=== PATIENT | male | born 1955 | race Two or more races ===

== ENCOUNTER 2017-01-11 05:42 | Inpatient (IN) | payer BC ==
[2017-01-11] VITALS (16 sets, daily range): BP systolic 98–131; BP diastolic 60–71
[~2017-01-11] VITALS: Ht 170.2 cm; Wt 76.2 kg
[~2017-01-11 05:42] MED LIST: NKM
[2017-01-11] MEDS ORDERED: ceFAZolin 1gm in D5W 55ml IVP ONE (06:00)
[2017-01-11] MEDS ORDERED: FARXIGA5 MG PO (06:38)
[2017-01-11] MEDS ORDERED: Surgicel 4in x 8in TOPIC ONE (07:19)
[2017-01-11] MEDS ORDERED: Bupivacaine 0.5% Inj 30 ml vial INJ ONE (07:19)
[2017-01-11] MEDS ORDERED: Propofol 10mg/ml 20ml IV ONE (07:30)
[2017-01-11] MEDS ORDERED: Zemuron 50mg/5ml Inj IV ONE (07:30)
[2017-01-11] MEDS ORDERED: Midazolam 2mg/2ml Inj ONE (07:30)
[2017-01-11] MEDS ORDERED: Morphine Sulfate 10mg/ml Inj ONE (07:30)
[2017-01-11] MEDS ORDERED: NS Irrig 1000ml ONE (07:30)
[2017-01-11] MEDS ORDERED: Sterile Water Irrig 1000ml IRRIG ONE (07:30)
[2017-01-11] MEDS ORDERED: Succinylcholine 20mg/ml 10ml vial ONE (07:30)
[2017-01-11] MEDS ORDERED: LR 1000ml ONE (07:30)
[2017-01-11] MEDS ORDERED: fentaNYL 100 mcg/2 mL IV ONE (07:30)
--- NOTE | 2017-01-11 07:45 | Pre-Procedure Note/Attestation ---
Pre-Procedure Note/Attestation Complete Prior to Procedure Planned Procedure: left Procedure Narrative: laparoscopic radical nephrectomy left Indications for Procedure Pre-Operative Diagnosis: renal mass Attestation I attest that I discussed the nature of the procedure; its benefits; risks and complications; and alternatives (and the risks and benefits of such alternatives ), prior to the procedure, with the patient (or the patient's legal medical customer service representative). I attest that, if there was a reasonable possibility of needing a blood transfusion, the patient (or the patient's legal medical customer service representative) was given the [facility] standardized written summary, pursuant to the Donald Vadim Blood Safety Act ([place] Health and Safety Code # 1645, as amended). I attest that I re-evaluated the patient just prior to the surgery and that there has been no change in the patient's H&P, except as documented below: Juanito Dubose MD Jan 11, 2017 07:45
[2017-01-11] MEDS ORDERED: NS Irrig 1000ml IRRIG ONE (08:21)
[2017-01-11] MEDS ORDERED: LR 1000ml 1,000 ML IVLG SCH (08:57)
--- NOTE | 2017-01-11 08:57 | Anethesia Preoperative Eval ---
Anesthesia Pre-op PMH/ROS General Date of Evaluation: Jan 11, 2017 Time of Evaluation: 07:10 Anesthesiologist: Travis ASA Score: ASA 3 Mallampati Score Class I : Soft palate, uvula, fauces, pillars visible Class II: Soft palate, uvula, fauces visible Class III: Soft palate, base of uvula visible Class IV: Only hard plate visible Mallampati Classification: Class II Surgeon: Sedrick Diagnosis: L kidney mass Surgical Procedure: Laparoscopic nephrectomy Anesthesia History: none Family History: no anesthesia problems Allergies: Coded Allergies: No Known Allergies (Unverified , 01/10/17) Medications: see eMAR Past Medical History Cardiovascular: Denies: CAD, HTN, [place], arrhythmia, other, valve dz Pulmonary: Denies: COPD, NATALIA, asthma, other Gastrointestinal/Genitourinary: Reports: GERD, other - Recent weight loss recurrent N&V, Denies: CRI, ESRD Neurologic/Psychiatric: Reports: depression/anxiety, Denies: CVA, TIA, dementia, other Endocrine: Reports: DM - stable on pills, Denies: hypothyroidism, other, steroids HEENT: Denies: SHOALWATER (L), SHOALWATER (R), cataract (L), cataract (R), glaucoma, other Hematology/Immune: Reports: anemia - severe a, Denies: DVT, bleeding disorder, other Musculoskeletal/Integumentary: Denies: DDD, DJD, OA, RA, edema, other Other: other - malnourished PMH Narrative: as above PSxH Narrative: None Anesthesia Pre-op Phys. Exam Physician Exam Last Vital Signs Date Time Temp Pulse Resp B/P Pulse Ox O2 Delivery O2 Flow Rate FiO2 01/11/17 06:36 97.0 90 18 108/62 96 Room Air Constitutional: NAD Neurologic: CN 2-12 intact Cardiovascular: RRR, no M/R/G Respiratory: CTA Gastrointestinal: S/NT/ND Airway Exam Mallampati Score: Class II Neck: flexible ROM: full Teeth: missing Dentures: no lower, no upper Anesthesia Pre-op A/P Labs see chart Studies Pre-op Studies: EKG Risk Assessment & Plan Assessment: ASA 3 Plan: GA with ETT PONV prevention possible intraoperative blood transfusion Status Change Before Surgery: No Pre-Antibiotics Drug: Ancef 2gr. Given Within 1 Hr of Incision: Yes Time Given: 08:12 VAKULENKO,CAROL, M.D. Jan 11, 2017 08:56
[2017-01-11] MEDS ORDERED: DiphenhydrAMINE 50mg/ml Inj IVP PRN (09:00)
[2017-01-11] MEDS ORDERED: Metoclopramide 10mg/2ml Inj IVP PRN (09:00)
[2017-01-11] MEDS ORDERED: Midazolam 2mg/2ml Inj IVP PRN (09:00)
[2017-01-11] MEDS ORDERED: Meperidine 25mg/0.5ml Inj (FOR RIGORS ONLY) IV PRN (09:00)
[2017-01-11] MEDS ORDERED: Ketorolac 30mg Inj IV PRN (09:00)
--- NOTE | 2017-01-11 09:06 | Brief Operative Note ---
Immediate Post Operative Note Operative Note Pre-op Diagnosis: renal mass Procedure: left laparoscopic radical nephrectomy Post-op Diagnosis: same Surgeon: Gato Dubose Customer Marketing Intern: Denny Underwood Anesthesia: general Specimen: yes Complications: none Condition: stable Estimated Blood Loss: minimal Drains: none Implant(s) used?: No Juanito Dubose MD Jan 11, 2017 09:06
--- NOTE | 2017-01-11 09:38 | Immediate Post-Op Evaluation ---
Immediate Post-Op Evalulation Immediate Post-Op Evalulation Procedure: L laparoscopic hand assisted nephrectomy Date of Evaluation: Jan 11, 2017 Time of Evaluation: 09:37 IV Fluids: 1200 Blood Products: Albumin 250 Estimated Blood Loss: 200 Urinary Output: 100 Blood Pressure Systolic: 105 Blood Pressure Diastolic: 65 Pulse Rate: 72 Respiratory Rate: 20 O2 Sat by Pulse Oximetry: 99 Temperature (Fahrenheit): 97.6 Pain Score (1-10): 2 Nausea: No Vomiting: No Complications none Patient Status: awake, patent, extubated, none Hydration Status: adequate CAROL CUI M.D. Jan 11, 2017 09:38
[2017-01-11] MEDS: Hydromorphone 0.5mg/0.5ml inj IVP PRN ×2 (10:03→10:24)
[2017-01-11 11:29] LABS: MEAN CORPUSCULAR HEMOGLOBIN 25.3 PG (27.0-31.0); MEAN CORPUSCULAR HGB CONC 29.7 G/DL (32.0-36.0); MEAN CORPUSCULAR VOLUME 85 FL (80-99); MEAN PLATELET VOLUME 5.5 FL (6.5-10.1); PLATELET COUNT 418 K/UL (150-450); RED BLOOD COUNT 3.12 M/UL (4.70-6.10); RED CELL DISTRIBUTION WIDTH 16.5 % (11.6-14.8); WHITE BLOOD COUNT 12.1 K/UL (4.8-10.8)
[2017-01-11 11:45] LABS: ANION GAP 19 (5-15); CARBON DIOXIDE 19 mEQ/L (20-30); CHLORIDE 99 mEQ/L (98-107); CREATININE 1.2 mg/dL (0.7-1.2); GLOMERULAR FILTRATION RATE > 60 mL/min (>60); HEMOLYSIS 0; POTASSIUM 3.6 mEQ/L (3.4-4.9); SODIUM 137 mEQ/L (135-145)
[2017-01-11 12:04] LABS: BAND NEUTROPHILS % (MANUAL) 4 % (0-8); LYMPHOCYTES % (MANUAL) 2 % (20-45); NEUTROPHILS % (MANUAL) 90 % (45-75); TOTAL CELLS COUNTED 100
[2017-01-11 12:05] LABS: BASOPHILS % (MANUAL) 0 % (0-2); EOSINOPHILS % (MANUAL) 0 % (0-3); PLATELET ESTIMATE ADEQUATE; PLATELET MORPHOLOGY NORMAL
[2017-01-11 12:06] LABS: ANISOCYTOSIS 1+; HYPOCHROMASIA 1+
[2017-01-11] MEDS ORDERED: ceFAZolin sod 2 GM in D5W 110 ML IV SCH (14:00)
[2017-01-11] MEDS: HYDROmorphone 1mg/ml Carpuject IVP PRN ×3 (14:41→23:44)
[2017-01-11] MEDS: D5 1/2NS w/KCl 20mEq 1,000 ML IV SCH ×2 (14:48→23:41)
[2017-01-11] MEDS: ceFAZolin 2gm/50 ML IV SCH ×2 (14:50→23:41)
[2017-01-11] MEDS ORDERED: NovoLOG Insulin Flexpen SUBQ SCH (16:30)
[2017-01-11] MEDS: Norco 5mg/325mg tab ORAL PRN (17:24)
[2017-01-11] MEDS: Docusate 100mg cap ORAL SCH (17:24)
[2017-01-11] MEDS: NovoLOG Insulin Flexpen SUBQ SCH ×2 (17:29→23:42)
[2017-01-12] VITALS: BP 100/62
[2017-01-12 04:00] VITALS: BP 97/57
[2017-01-12] MEDS: Norco 5mg/325mg tab ORAL PRN (05:13)
[2017-01-12] MEDS: NovoLOG Insulin Flexpen SUBQ SCH ×4 (06:11→20:19)
[2017-01-12 06:19] LABS: MEAN CORPUSCULAR HGB CONC 30.3 G/DL (32.0-36.0); MEAN CORPUSCULAR VOLUME 86 FL (80-99); MEAN PLATELET VOLUME 5.5 FL (6.5-10.1); PLATELET COUNT 464 K/UL (150-450); RED BLOOD COUNT 3.02 M/UL (4.70-6.10); RED CELL DISTRIBUTION WIDTH 16.7 % (11.6-14.8); WHITE BLOOD COUNT 5.8 K/UL (4.8-10.8)
[2017-01-12 06:41] LABS: CALCIUM 9.1 mg/dL (8.6-10.2); CREATININE 1.5 mg/dL (0.7-1.2); GLOMERULAR FILTRATION RATE 47.4 mL/min (>60)
[2017-01-12 08:00] VITALS: BP 111/69
[2017-01-12] MEDS: HYDROmorphone 1mg/ml Carpuject IVP PRN ×2 (08:08→20:05)
[2017-01-12] MEDS: Docusate 100mg cap ORAL SCH ×2 (08:08→17:12)
[2017-01-12 10:41] LABS: EOSINOPHILS % (MANUAL) 1 % (0-3); LYMPHOCYTES % (MANUAL) 28 % (20-45); NEUTROPHILS % (MANUAL) 65 % (45-75); TOTAL CELLS COUNTED 100
[2017-01-12 10:42] LABS: ANISOCYTOSIS 1+; BAND NEUTROPHILS % (MANUAL) 0 % (0-8); BASOPHILS % (MANUAL) 0 % (0-2); HYPOCHROMASIA 1+; PLATELET ESTIMATE ADEQUATE; PLATELET MORPHOLOGY NORMAL
[2017-01-12 11:31] VITALS: BP 125/77
[2017-01-12] MEDS: D5 1/2NS w/KCl 20mEq 1,000 ML IV SCH ×2 (11:37→20:12)
--- NOTE | 2017-01-12 13:06 | 48 Hour Post Anesthesia Eval ---
Post Anesthesia Evaluation Procedure: L laparoscopic hand assisted nephrectomy Date of Evaluation: Jan 12, 2017 Time of Evaluation: 12:05 Blood Pressure Systolic: 125 0: 77 Pulse Rate: 67 Respiratory Rate: 18 Temperature (Fahrenheit): 98.2 O2 Sat by Pulse Oximetry: 97 Airway: patent Nausea: No Vomiting: No Pain Intensity: 2 Hydration Status: adequate Cardiopulmonary Status: at baseline Mental Status/LOC: patient returned to baseline Post-Anesthesia Complications: 0 Follow-up care needed: N/A - further care as per primary team CHING WERNER M.D. Jan 12, 2017 13:06
--- NOTE | 2017-01-12 13:16 | Consultation ---
DATE OF CONSULTATION: 01/12/2017 INTERNAL MEDICINE CONSULTATION HISTORY OF PRESENT ILLNESS: This is a 61-year-old male, who is left radical nephrectomy. He had presented with a left renal mass was and was worked up. He has a previous history of diabetes mellitus and no other significant past history is noted. PAST MEDICAL HISTORY: Diabetes mellitus. PREVIOUS SURGICAL HISTORY: None. HOME MEDICATIONS: Farxiga 5 mg daily and Naprosyn p.r.n. ALLERGIES: None known. SOCIAL HISTORY: Noncontributory. No history of alcohol or tobacco usage. FAMILY HISTORY: Noncontributory. REVIEW OF SYSTEMS: The patient denies any headaches, hematemesis, melena, hematochezia, night sweats, or weight loss. PHYSICAL EXAMINATION: GENERAL: Reveals a 61-year-old male. HEENT: Unremarkable. CHEST: Shows clear breath sounds bilaterally. ABDOMEN: Soft. There is edema. Surgical incision is noted. Bowel sounds are not appreciated. LABORATORY DATA: Lab testing shows creatinine increasing from 1.2 to 1.5 and hemoglobin 7.9. Otherwise, workup was negative. IMPRESSION: 1. Status post left radical nephrectomy. 2. Diabetes mellitus. DISCUSSION: The patient is on dextrose plus saline. His pain medications are adequate yesterday. He is going to start today on clear liquid diet. His discontinued. Continue present medications and care. DISCHARGE PLANNING: The patient is taking POs and is ambulatory. Romain Hanley M.D. DR: RENZO JOB#: [id number] CC:
[2017-01-12 16:30] VITALS: BP 135/90
--- NOTE | 2017-01-12 16:46 | Diagnostic Imaging Report ---
Indications: Left sided abdominopelvic pain, abnormal renal function tests, one day status post nephrectomy Technique: Transabdominal real-time grayscale and duplex Doppler imaging of the kidneys, retroperitoneum, and urinary bladder was performed Findings: Comparison: None Right kidney measures 12.5 cm in length. Normal contour, echotexture, cortical thickness. 17 mm circumscribed anechoic focus emanates exophytically from lower pole cortex. No stones, other focal lesions, hydronephrosis, or obvious perinephric abnormalities. Left kidney not identified. Small irregular fluid collection in left renal bed.. The intrahepatic portion of inferior vena cava is patent and normal caliber. The urinary bladder is moderately distended with low level internal echoes. Its floor is indented by a prominent prostate gland. Circumscribed hypoechoic mass with echogenic margins appears to reside within the central portion of the mass. This appearance is more prominent on axial than sagittal imaging.. IMPRESSION: Nonvisualization of left kidney with fluid in left renal bed, compatible with given surgical history Small right renal cortical cyst; otherwise sonographically unremarkable right kidney Moderate distention of urinary bladder with low level internal echoes, may represent blood or other debris Prominent prostate indents floor of urinary bladder. Central masslike prominence is of uncertain significance and may simply represent lobulation. Rule out retained Pride catheter balloon. Attempts are being made to contact Dr. Parker, ordering physician, by telephone at time of this dictation.
[2017-01-12 20:00] VITALS: BP 130/93
[2017-01-12] MEDS: Tamsulosin 0.4mg cap ORAL SCH (20:12)
[2017-01-13] VITALS: BP 129/88
[2017-01-13 04:00] VITALS: BP 124/74
[2017-01-13] MEDS: D5 1/2NS w/KCl 20mEq 1,000 ML IV SCH ×3 (06:17→23:28)
[2017-01-13] MEDS: NovoLOG Insulin Flexpen SUBQ SCH ×4 (06:18→21:00)
[2017-01-13 07:54] LABS: CALCIUM 8.4 mg/dL (8.6-10.2); CREATININE 1.3 mg/dL (0.7-1.2); GLOMERULAR FILTRATION RATE 55.9 mL/min (>60); POTASSIUM 4.1 mEQ/L (3.4-4.9)
[2017-01-13 07:58] LABS: MEAN CORPUSCULAR HEMOGLOBIN 24.7 PG (27.0-31.0); MEAN CORPUSCULAR VOLUME 85 FL (80-99); MEAN PLATELET VOLUME 5.4 FL (6.5-10.1); PLATELET COUNT 459 K/UL (150-450); RED BLOOD COUNT 3.12 M/UL (4.70-6.10); RED CELL DISTRIBUTION WIDTH 16.4 % (11.6-14.8); WHITE BLOOD COUNT 5.1 K/UL (4.8-10.8)
[2017-01-13 08:00] VITALS: BP 131/78
[2017-01-13] MEDS: Docusate 100mg cap ORAL SCH ×2 (08:55→18:22)
--- NOTE | 2017-01-13 09:08 | Pulmonology Progress Note ---
Assessment/Plan Assessment/Plan IMPRESSION: 1. Status post left radical nephrectomy. 2. Diabetes mellitus. 3. MRSA nares 4. Post-op ileus DISCUSSION: Continue present medications and care. Pride dc Keep on clear liquid diet till pt has flatus or bowel movements Will transfuse today DC home when tolerating PO diet Subjective Interval Events: Anemic today; toleratingCLD; no flatus Constitutional: Reports: no symptoms HEENT: Repors: no symptoms Respiratory: Reports: no symptoms Cardiovascular: Reports: no symptoms Gastrointestinal/Abdominal: Reports: no symptoms Genitourinary: Reports: no symptoms Allergies: Coded Allergies: No Known Allergies (Unverified , 01/10/17) Objective Last 24 Hour Vital Signs Date Time Temp Pulse Resp B/P Pulse Ox O2 Delivery O2 Flow Rate FiO2 01/13/17 08:00 96.8 73 18 131/78 96 Room Air 01/13/17 04:00 98.4 73 19 124/74 99 Room Air 01/13/17 00:00 97.9 75 18 129/88 97 Room Air 01/12/17 20:00 98.2 79 18 130/93 95 Room Air 01/12/17 16:30 98.8 71 18 135/90 97 Room Air 01/12/17 13:06 67 18 97 01/12/17 11:31 98.2 67 18 125/77 99 Room Air Intake and Output 01/12/17 01/13/17 19:00 07:00 Intake Total 7170 ml 240 ml Output Total 350 ml 1300 ml Balance 6820 ml -1060 ml Intake Oral 720 ml 240 ml IV Total 6450 ml Output Urine Total 350 ml 1300 ml # Voids 3 General Appearance: no acute distress HEENT: normocephalic Respiratory/Chest: chest wall non-tender, lungs clear Cardiovascular: normal peripheral pulses, normal rate Abdomen: hypoactive bowel sounds Extremities: no cyanosis Microbiology Date/Time Source Procedure Growth Status 01/11/17 06:35 Nasal Nares MRSA Culture - Final Staphylococcus Aureus - Mrsa Complete Laboratory Tests 01/13/17 06:30: White Blood Count 5.1, Red Blood Count 3.12L, Hemoglobin 7.7L, Hematocrit 26.6L , Mean Corpuscular Volume 85, Mean Corpuscular Hemoglobin 24.7L, Mean Corpuscular Hemoglobin Concent 29.0L, Red Cell Distribution Width 16.4H, Platelet Count 459H, Mean Platelet Volume 5.4L, Neutrophils (%) (Auto) , Lymphocytes (%) (Auto) , Monocytes (%) (Auto) , Eosinophils (%) (Auto) , Basophils (%) (Auto) , Neutrophils % (Manual) [Pending], Lymphocytes % (Manual) [Pending], Platelet Estimate [Pending], Platelet Morphology [Pending], Sodium Level 137, Potassium Level 4.1, Chloride Level 103, Carbon Dioxide Level 23, Anion Gap 11, Blood Urea Nitrogen 13, Creatinine 1.3H, Estimat Glomerular Filtration Rate 55.9, Glucose Level 127H, Calcium Level 8.4L Current Medications Medications (Trade) Dose Ordered Sig/Grayson Route PRN Reason Start Time Stop Time Status Last Admin Dose Admin Acetaminophen (Tylenol) 650 mg Q6H PRN ORAL Mild Pain (Pain Scale 1-3) 01/11/17 14:00 02/10/17 13:59 Acetaminophen/ Hydrocodone Bitart ([place] 5/325) 1 tab Q4H PRN ORAL Moderate Pain (Pain Scale 4-6) 01/11/17 14:00 01/18/17 13:59 01/12/17 05:13 Dextrose (Dextrose 50%) STAT PRN IV Hypoglycemia 01/11/17 15:30 02/10/17 15:29 Dextrose/ Electrolytes (D5 0.45%NS W/ KCl 20mEq) 1,000 ml @ 100 mls/hr Q10H IV 01/11/17 14:00 02/10/17 13:59 01/13/17 06:17 Docusate Sodium (Colace) 100 mg TWICE A DAY ORAL 01/11/17 18:00 02/10/17 17:59 01/13/17 08:55 Hydromorphone HCl (Dilaudid) 1 mg Q3H PRN IVP Severe Pain (Pain Scale 7-10) 01/12/17 01:30 01/19/17 01:29 01/12/17 20:05 Insulin Aspart (NovoLOG) AC+HS SUBQ 01/12/17 11:30 02/11/17 11:29 01/13/17 06:18 Mupirocin (Bactroban Oint) 1 applic BID TOPIC 01/12/17 21:00 01/17/17 20:59 01/13/17 08:55 Ondansetron HCl (Zofran) 4 mg Q6H PRN IVP Nausea & Vomiting 01/11/17 14:00 02/10/17 13:59 Sodium Chloride (NS) 500 ml @ 999 mls/hr BIDPRN PRN IV PRN NO URINE OUTPUT 01/12/17 15:00 01/13/17 23:59 01/12/17 16:27 Tamsulosin HCl 0.4 mg 0.4 mg BEDTIME ORAL 01/12/17 21:00 02/11/17 20:59 01/12/17 20:12 Temazepam (Restoril) 7.5 mg HSPRN PRN ORAL Insomnia 01/11/17 20:00 01/18/17 19:59 Romain Hanley MD Jan 13, 2017 09:08
[2017-01-13 10:01] LABS: EOSINOPHILS % (MANUAL) 2 % (0-3); LYMPHOCYTES % (MANUAL) 28 % (20-45); NEUTROPHILS % (MANUAL) 64 % (45-75); TOTAL CELLS COUNTED 100
[2017-01-13 10:02] LABS: ANISOCYTOSIS 1+; BAND NEUTROPHILS % (MANUAL) 0 % (0-8); BASOPHILS % (MANUAL) 0 % (0-2); HYPOCHROMASIA 3+; PLATELET ESTIMATE ADEQUATE; PLATELET MORPHOLOGY NORMAL
[2017-01-13 12:00] VITALS: BP 132/90
[2017-01-13 16:00] VITALS: BP 130/81
[2017-01-13 20:00] VITALS: BP 132/78
[2017-01-13] MEDS: Tamsulosin 0.4mg cap ORAL SCH (21:44)
[2017-01-13] MEDS: HYDROmorphone 1mg/ml Carpuject IVP PRN (23:28)
[2017-01-14] VITALS: BP 142/85
[2017-01-14 04:13] VITALS: BP 137/83
--- NOTE | 2017-01-14 04:45 | Operative Note - Dictated ---
DATE OF OPERATION: 01/11/2017 PREOPERATIVE DIAGNOSIS: Left renal mass. POSTOPERATIVE DIAGNOSIS: Left renal mass. OPERATION: Laparoscopic radical left nephrectomy. SURGEON: Juanito Dubose M.D. PICKING TABLE WORKER: Denny Underwood M.D. FINDINGS: A 10 cm large renal mass. INDICATIONS FOR SURGERY: The patient presented to me for second opinion for a large left renal mass. CT urogram confirmed the presence of a large mobile renal mass without distant metastasis . Treatment options were explained to the patient in great length including all potential complications and she signed a consent. She was brought to the operating room, placed in the left lateral decubital position, and prepped and draped in a standard fashion under general anesthesia. A 7.5 cm incision was made in the midline below the xiphoid and three additional trocars, two 12 and one 5 was placed. In the standard position, dissection was started with mobilization of the descending colon medially exposing spleen and left renal fossa. Spleen was retracted cephalad and kidney was exposed. Ureter was clipped and severed with Endo-ESTEFANY. Further dissection with blunt and sharp dissection revealed all the margins of the kidney. Renal pedicle was dissected free and transected with Endo-ESTEFANY, adrenal as well and removed for pathologic examination. There was no active bleeding. Estimated blood loss was approximately 150 mL. There was no evidence of residual tumor. The patient tolerated the procedure well. The wound was closed in three layers. Juanito Dubose M.D. DR: Luisito JOB#: [id number] CC:
[2017-01-14] MEDS: NovoLOG Insulin Flexpen SUBQ SCH ×4 (06:17→21:25)
[2017-01-14 07:35] LABS: BASOPHILS % (AUTO) 0.4 % (0.0-2.0); EOSINOPHILS % (AUTO) 1.9 % (0.0-3.0); LYMPHOCYTES % (AUTO) 11.9 % (20.0-45.0); MEAN CORPUSCULAR HEMOGLOBIN 27.3 PG (27.0-31.0); MEAN CORPUSCULAR HGB CONC 31.3 G/DL (32.0-36.0); MEAN CORPUSCULAR VOLUME 87 FL (80-99); MEAN PLATELET VOLUME 5.3 FL (6.5-10.1); MONOCYTES % (AUTO) 5.8 % (1.0-10.0); PLATELET COUNT 505 K/UL (150-450); RED BLOOD COUNT 3.84 M/UL (4.70-6.10); RED CELL DISTRIBUTION WIDTH 16.4 % (11.6-14.8); WHITE BLOOD COUNT 5.8 K/UL (4.8-10.8)
[2017-01-14 07:54] LABS: ANION GAP 11 (5-15); CALCIUM 8.6 mg/dL (8.6-10.2); CARBON DIOXIDE 24 mEQ/L (20-30); CHLORIDE 104 mEQ/L (98-107); CREATININE 1.2 mg/dL (0.7-1.2); GLOMERULAR FILTRATION RATE > 60 mL/min (>60); HEMOLYSIS 0; SODIUM 139 mEQ/L (135-145)
[2017-01-14 08:12] VITALS: BP 134/91
[2017-01-14] MEDS: Docusate 100mg cap ORAL SCH ×2 (09:12→17:42)
[2017-01-14] MEDS: Norco 5mg/325mg tab ORAL PRN ×2 (09:12→17:43)
[2017-01-14] MEDS: D5 1/2NS w/KCl 20mEq 1,000 ML IV SCH ×2 (09:15→22:00)
[2017-01-14] MEDS ORDERED: NS 550ML IV ONE (09:41)
[2017-01-14] MEDS ORDERED: Tubing Blood Filter IV ONE (09:41)
[2017-01-14] MEDS ORDERED: Tubing IV Secondary IV ONE (09:41)
[2017-01-14 12:20] VITALS: BP 108/77
[2017-01-14 16:00] VITALS: BP 125/75
--- NOTE | 2017-01-14 16:16 | Internal Med Progress Note ---
Subjective Date of Service: Jan 14, 2017 Physician Name Winston Avery Attending Physician Juanito Dubose MD Current Medications Medications (Trade) Dose Ordered Sig/Grayson Route PRN Reason Start Time Stop Time Status Last Admin Dose Admin Acetaminophen (Tylenol) 650 mg Q6H PRN ORAL Mild Pain (Pain Scale 1-3) 01/11/17 14:00 02/10/17 13:59 Acetaminophen/ Hydrocodone Bitart ([place] 5/325) 1 tab Q4H PRN ORAL Moderate Pain (Pain Scale 4-6) 01/11/17 14:00 01/18/17 13:59 01/14/17 09:12 Dextrose (Dextrose 50%) STAT PRN IV Hypoglycemia 01/11/17 15:30 02/10/17 15:29 Dextrose/ Electrolytes (D5 0.45%NS W/ KCl 20mEq) 1,000 ml @ 100 mls/hr Q10H IV 01/11/17 14:00 02/10/17 13:59 01/14/17 09:15 Docusate Sodium (Colace) 100 mg TWICE A DAY ORAL 01/11/17 18:00 02/10/17 17:59 01/14/17 09:12 Hydromorphone HCl (Dilaudid) 1 mg Q3H PRN IVP Severe Pain (Pain Scale 7-10) 01/12/17 01:30 01/19/17 01:29 01/13/17 23:28 Insulin Aspart (NovoLOG) AC+HS SUBQ 01/12/17 11:30 02/11/17 11:29 01/14/17 12:26 Mupirocin (Bactroban Oint) 1 applic BID TOPIC 01/12/17 21:00 01/17/17 20:59 01/14/17 09:13 Ondansetron HCl (Zofran) 4 mg Q6H PRN IVP Nausea & Vomiting 01/11/17 14:00 02/10/17 13:59 01/14/17 10:44 Tamsulosin HCl (Flomax) 0.4 mg BEDTIME ORAL 01/12/17 21:00 02/11/17 20:59 01/13/17 21:44 Temazepam (Restoril) 7.5 mg HSPRN PRN ORAL Insomnia 01/11/17 20:00 01/18/17 19:59 Allergies: Coded Allergies: No Known Allergies (Unverified , 01/10/17) ROS Limited/Unobtainable: No Constitutional: Reports: no symptoms HEENT: Reports: no symptoms Cardiovascular: Reports: no symptoms Respiratory: Reports: no symptoms Gastrointestinal/Abdominal: Reports: no symptoms Genitourinary: Reports: no symptoms Neurologic/Psychiatric: Reports: no symptoms Subjective 61 YO M admitted with left renal mass; S/P laparoscopic left nephrectomy . Cover for Int Martin-Dr Hanley Objective Last Vital Signs Date Time Temp Pulse Resp B/P Pulse Ox O2 Delivery O2 Flow Rate FiO2 01/14/17 12:20 97.2 76 18 108/77 96 Room Air 01/12/17 04:00 Laboratory Tests Test 01/14/17 05:10 White Blood Count 5.8 K/UL (4.8-10.8) Red Blood Count 3.84 M/UL (4.70-6.10) L Hemoglobin 10.5 G/DL (14.2-18.0) #L Hematocrit 33.5 % (42.0-52.0) L Mean Corpuscular Volume 87 FL (80-99) Mean Corpuscular Hemoglobin 27.3 PG (27.0-31.0) Mean Corpuscular Hemoglobin Concent 31.3 G/DL (32.0-36.0) L Red Cell Distribution Width 16.4 % (11.6-14.8) H Platelet Count 505 K/UL (150-450) H Mean Platelet Volume 5.3 FL (6.5-10.1) L Neutrophils (%) (Auto) 80.0 % (45.0-75.0) H Lymphocytes (%) (Auto) 11.9 % (20.0-45.0) L Monocytes (%) (Auto) 5.8 % (1.0-10.0) Eosinophils (%) (Auto) 1.9 % (0.0-3.0) Basophils (%) (Auto) 0.4 % (0.0-2.0) Sodium Level 139 mEQ/L (135-145) Potassium Level 4.0 mEQ/L (3.4-4.9) Chloride Level 104 mEQ/L (98-107) Carbon Dioxide Level 24 mEQ/L (20-30) Anion Gap 11 (5-15) Blood Urea Nitrogen 10 mg/dL (7-23) Creatinine 1.2 mg/dL (0.7-1.2) Estimat Glomerular Filtration Rate > 60 mL/min (>60) Glucose Level 147 mg/dL (74-106) H Calcium Level 8.6 mg/dL (8.6-10.2) Intake and Output 01/13/17 01/14/17 19:00 07:00 Intake Total 100 ml 800 ml Output Total 950 ml Balance -850 ml 800 ml IV Total 100 ml 800 ml Output Urine Total 950 ml # Voids 3 Objective General: alert, cooperative, no distress, appears stated age Head: normocephalic, without obvious abnormality, atraumatic Eyes: conjunctivae/corneas clear. PERRL, EOM's intact Throat: lips, mucosa, and tongue normal. MMM Neck: supple, symmetrical, trachea midline, and no JVD Lungs: clear to auscultation bilaterally Heart: regular rate and rhythm, S1, S2 normal, no murmur, click, rub or gallop Abdomen: soft, non-tender, non-distended, bowel sounds normal; no masses or organomegaly Extremities: extremities normal, atraumatic, no cyanosis or edema Pulses: 2+ and symmetric Skin: skin color, texture, turgor normal; no rashes or lesions Neurologic: grossly normal, no focal deficits Assessment/Plan Problem List: (1) Left renal mass Assessment & Plan: See surgery note. S/P left laparoscopic nephrectomy on 01/11 (2) Postoperative state (3) Diabetes mellitus, type II Assessment & Plan: Continue novolog sliding scale. Status: progressing WINSTON AVERY Jan 14, 2017 16:16
[2017-01-14 20:00] VITALS: BP 137/88
[2017-01-14] MEDS: Tamsulosin 0.4mg cap ORAL SCH (21:20)
[2017-01-15] VITALS: BP 124/84
[2017-01-15] MEDS: HYDROmorphone 1mg/ml Carpuject IVP PRN ×2 (00:49→11:57)
[2017-01-15] MEDS: D5 1/2NS w/KCl 20mEq 1,000 ML IV SCH (00:56)
[2017-01-15 04:00] VITALS: BP 129/83
[2017-01-15] MEDS: NovoLOG Insulin Flexpen SUBQ SCH ×4 (06:11→20:25)
[2017-01-15 07:04] LABS: BASOPHILS % (AUTO) 0.7 % (0.0-2.0); EOSINOPHILS % (AUTO) 3.1 % (0.0-3.0); LYMPHOCYTES % (AUTO) 14.2 % (20.0-45.0); MEAN CORPUSCULAR HEMOGLOBIN 26.9 PG (27.0-31.0); MEAN CORPUSCULAR HGB CONC 30.6 G/DL (32.0-36.0); MEAN CORPUSCULAR VOLUME 88 FL (80-99); MEAN PLATELET VOLUME 5.1 FL (6.5-10.1); MONOCYTES % (AUTO) 6.5 % (1.0-10.0); NEUTROPHILS % (AUTO) 75.6 % (45.0-75.0); PLATELET COUNT 432 K/UL (150-450); RED CELL DISTRIBUTION WIDTH 16.6 % (11.6-14.8)
[2017-01-15 07:41] LABS: CALCIUM 8.4 mg/dL (8.6-10.2); CREATININE 1.3 mg/dL (0.7-1.2); GLOMERULAR FILTRATION RATE 55.9 mL/min (>60); POTASSIUM 4.3 mEQ/L (3.4-4.9)
[2017-01-15 08:00] VITALS: BP 134/78
[2017-01-15] MEDS: Docusate 100mg cap ORAL SCH ×2 (09:55→17:33)
[2017-01-15 12:00] VITALS: BP 130/90
[2017-01-15 16:00] VITALS: BP 143/93
--- NOTE | 2017-01-15 18:11 | Internal Med Progress Note ---
Subjective Date of Service: Jan 15, 2017 Physician Name AveryWinston macias Attending Physician Juanito Dubose MD Current Medications Medications (Trade) Dose Ordered Sig/Grayson Route PRN Reason Start Time Stop Time Status Last Admin Dose Admin Acetaminophen (Tylenol) 650 mg Q6H PRN ORAL Mild Pain (Pain Scale 1-3) 01/11/17 14:00 02/10/17 13:59 Acetaminophen/ Hydrocodone Bitart ([place] 5/325) 1 tab Q4H PRN ORAL Moderate Pain (Pain Scale 4-6) 01/11/17 14:00 01/18/17 13:59 01/14/17 17:43 Al Hydroxide/Mg Hydroxide (Mylanta) 30 ml Q4H PRN ORAL N/V UNRELIEVED BY KRYS 01/14/17 18:15 02/13/17 18:14 Dextrose (Dextrose 50%) STAT PRN IV Hypoglycemia 01/11/17 15:30 02/10/17 15:29 Docusate Sodium (Colace) 100 mg TWICE A DAY ORAL 01/11/17 18:00 02/10/17 17:59 01/15/17 17:33 Hydromorphone HCl (Dilaudid) 1 mg Q3H PRN IVP Severe Pain (Pain Scale 7-10) 01/12/17 01:30 01/19/17 01:29 01/15/17 11:57 Insulin Aspart (NovoLOG) AC+HS SUBQ 01/12/17 11:30 02/11/17 11:29 01/15/17 06:11 Mupirocin (Bactroban Oint) 1 applic BID TOPIC 01/12/17 21:00 01/17/17 20:59 01/15/17 17:33 Ondansetron HCl (Zofran) 4 mg Q6H PRN IVP Nausea & Vomiting 01/11/17 14:00 02/10/17 13:59 01/15/17 12:34 Pantoprazole (Protonix) 40 mg DAILY ORAL 01/15/17 09:00 02/14/17 08:59 01/15/17 09:56 Tamsulosin HCl (Flomax) 0.4 mg BEDTIME ORAL 01/12/17 21:00 02/11/17 20:59 01/14/17 21:20 Temazepam (Restoril) 7.5 mg HSPRN PRN ORAL Insomnia 01/11/17 20:00 01/18/17 19:59 01/14/17 21:20 Allergies: Coded Allergies: No Known Allergies (Unverified , 01/10/17) ROS Limited/Unobtainable: No Constitutional: Reports: no symptoms HEENT: Reports: no symptoms Cardiovascular: Reports: no symptoms Respiratory: Reports: no symptoms Gastrointestinal/Abdominal: Reports: abdominal pain Genitourinary: Reports: no symptoms Neurologic/Psychiatric: Reports: no symptoms Subjective 61 YO M admitted with left renal mass; S/P laparoscopic left nephrectomy . Cover for Int Martin-Dr Hanley Objective Last Vital Signs Date Time Temp Pulse Resp B/P Pulse Ox O2 Delivery O2 Flow Rate FiO2 01/15/17 16:00 96.2 77 20 143/93 95 Room Air 01/12/17 04:00 Laboratory Tests Test 01/15/17 05:20 White Blood Count 7.0 K/UL (4.8-10.8) Red Blood Count 3.70 M/UL (4.70-6.10) L Hemoglobin 10.0 G/DL (14.2-18.0) L Hematocrit 32.6 % (42.0-52.0) L Mean Corpuscular Volume 88 FL (80-99) Mean Corpuscular Hemoglobin 26.9 PG (27.0-31.0) L Mean Corpuscular Hemoglobin Concent 30.6 G/DL (32.0-36.0) L Red Cell Distribution Width 16.6 % (11.6-14.8) H Platelet Count 432 K/UL (150-450) Mean Platelet Volume 5.1 FL (6.5-10.1) L Neutrophils (%) (Auto) 75.6 % (45.0-75.0) H Lymphocytes (%) (Auto) 14.2 % (20.0-45.0) L Monocytes (%) (Auto) 6.5 % (1.0-10.0) Eosinophils (%) (Auto) 3.1 % (0.0-3.0) H Basophils (%) (Auto) 0.7 % (0.0-2.0) Sodium Level 138 mEQ/L (135-145) Potassium Level 4.3 mEQ/L (3.4-4.9) Chloride Level 103 mEQ/L (98-107) Carbon Dioxide Level 23 mEQ/L (20-30) Anion Gap 12 (5-15) Blood Urea Nitrogen 12 mg/dL (7-23) Creatinine 1.3 mg/dL (0.7-1.2) H Estimat Glomerular Filtration Rate 55.9 mL/min (>60) Glucose Level 137 mg/dL (74-106) H Calcium Level 8.4 mg/dL (8.6-10.2) L Intake and Output 01/14/17 01/15/17 19:00 07:00 Intake Total 920 ml 340 ml Output Total 350 ml 275 ml Balance 570 ml 65 ml Intake Oral 320 ml 240 ml IV Total 600 ml 100 ml Output Urine Total 350 ml 275 ml # Voids 3 1 # Bowel Movements 1 Objective General: alert, cooperative, no distress, appears stated age Head: normocephalic, without obvious abnormality, atraumatic Eyes: conjunctivae/corneas clear. PERRL, EOM's intact Throat: lips, mucosa, and tongue normal. MMM Neck: supple, symmetrical, trachea midline, and no JVD Lungs: clear to auscultation bilaterally Heart: regular rate and rhythm, S1, S2 normal, no murmur, click, rub or gallop Abdomen: soft, non-tender, non-distended, bowel sounds normal; no masses or organomegaly Extremities: extremities normal, atraumatic, no cyanosis or edema Pulses: 2+ and symmetric Skin: skin color, texture, turgor normal; no rashes or lesions Neurologic: grossly normal, no focal deficits Assessment/Plan Problem List: (1) Left renal mass Assessment & Plan: See surgery note. S/P left laparoscopic nephrectomy on 01/11 (2) Postoperative state (3) Diabetes mellitus, type II Assessment & Plan: Continue novolog sliding scale. Status: progressing Assessment/Plan Advance diet per surgery. WINSTON AVERY Jan 15, 2017 18:11
[2017-01-15 20:00] VITALS: BP 128/80
[2017-01-15] MEDS: Norco 5mg/325mg tab ORAL PRN (20:51)
[2017-01-15] MEDS: Tamsulosin 0.4mg cap ORAL SCH (20:51)
[2017-01-16] VITALS: BP 123/73
[2017-01-16 04:00] VITALS: BP 129/86
[2017-01-16] MEDS: Norco 5mg/325mg tab ORAL PRN (05:32)
[2017-01-16] MEDS: NovoLOG Insulin Flexpen SUBQ SCH ×2 (06:27→11:30)
[2017-01-16 06:52] LABS: BASOPHILS % (AUTO) 0.9 % (0.0-2.0); EOSINOPHILS % (AUTO) 2.6 % (0.0-3.0); LYMPHOCYTES % (AUTO) 23.3 % (20.0-45.0); MEAN CORPUSCULAR HEMOGLOBIN 27.7 PG (27.0-31.0); MEAN CORPUSCULAR HGB CONC 31.8 G/DL (32.0-36.0); MEAN CORPUSCULAR VOLUME 87 FL (80-99); MEAN PLATELET VOLUME 5.3 FL (6.5-10.1); MONOCYTES % (AUTO) 11.1 % (1.0-10.0); NEUTROPHILS % (AUTO) 62.2 % (45.0-75.0); PLATELET COUNT 431 K/UL (150-450); RED BLOOD COUNT 3.53 M/UL (4.70-6.10); RED CELL DISTRIBUTION WIDTH 17.6 % (11.6-14.8); WHITE BLOOD COUNT 5.1 K/UL (4.8-10.8)
[2017-01-16 07:34] LABS: CALCIUM 8.5 mg/dL (8.6-10.2); CREATININE 1.3 mg/dL (0.7-1.2); GLOMERULAR FILTRATION RATE 55.9 mL/min (>60); POTASSIUM 4.1 mEQ/L (3.4-4.9)
[2017-01-16 08:00] VITALS: BP 128/78
[2017-01-16] MEDS: Docusate 100mg cap ORAL SCH (09:13)
--- NOTE | 2017-01-16 10:19 | Pulmonology Progress Note ---
Assessment/Plan Assessment/Plan IMPRESSION: 1. Status post left radical nephrectomy. 2. Diabetes mellitus. 3. MRSA nares 4. Post-op ileus DISCUSSION: Continue present medications and care. Shannen wilcox DC home Subjective Interval Events: doing well Constitutional: Reports: no symptoms HEENT: Repors: no symptoms Respiratory: Reports: no symptoms Cardiovascular: Reports: no symptoms Gastrointestinal/Abdominal: Reports: no symptoms Allergies: Coded Allergies: No Known Allergies (Unverified , 01/10/17) Objective Last 24 Hour Vital Signs Date Time Temp Pulse Resp B/P Pulse Ox O2 Delivery O2 Flow Rate FiO2 01/16/17 08:00 97.0 65 17 128/78 95 Room Air 01/16/17 04:00 97.4 71 18 129/86 97 Room Air 01/16/17 00:00 98.5 74 18 123/73 95 Room Air 01/15/17 20:00 97.5 79 18 128/80 96 Room Air 01/15/17 16:00 96.2 77 20 143/93 95 Room Air 01/15/17 12:00 97.0 80 18 130/90 97 Room Air Intake and Output 01/15/17 01/16/17 19:00 07:00 Intake Total 1410 ml 240 ml Output Total 550 ml 325 ml Balance 860 ml -85 ml Intake Oral 910 ml 240 ml IV Total 500 ml Output Urine Total 550 ml 325 ml # Voids 4 2 General Appearance: no acute distress HEENT: normocephalic Respiratory/Chest: chest wall non-tender, lungs clear Cardiovascular: normal peripheral pulses, normal rate Abdomen: normal bowel sounds Laboratory Tests 01/16/17 04:30: White Blood Count 5.1, Red Blood Count 3.53L, Hemoglobin 9.8L, Hematocrit 30.8L , Mean Corpuscular Volume 87, Mean Corpuscular Hemoglobin 27.7, Mean Corpuscular Hemoglobin Concent 31.8L, Red Cell Distribution Width 17.6H, Platelet Count 431, Mean Platelet Volume 5.3L, Neutrophils (%) (Auto) 62.2, Lymphocytes (%) (Auto) 23.3, Monocytes (%) (Auto) 11.1H, Eosinophils (%) (Auto) 2.6, Basophils (%) (Auto) 0.9, Sodium Level 140, Potassium Level 4.1, Chloride Level 103, Carbon Dioxide Level 26, Anion Gap 11, Blood Urea Nitrogen 13, Creatinine 1.3H, Estimat Glomerular Filtration Rate 55.9, Glucose Level 106, Calcium Level 8.5L Current Medications Medications (Trade) Dose Ordered Sig/[place] Route PRN Reason Start Time Stop Time Status Last Admin Dose Admin Acetaminophen (Tylenol) 650 mg Q6H PRN ORAL Mild Pain (Pain Scale 1-3) 01/11/17 14:00 02/10/17 13:59 Acetaminophen/ Hydrocodone Bitart (Martin 5/325) 1 tab Q4H PRN ORAL Moderate Pain (Pain Scale 4-6) 01/11/17 14:00 01/18/17 13:59 01/16/17 05:32 Al Hydroxide/Mg Hydroxide (Mylanta) 30 ml Q4H PRN ORAL N/V UNRELIEVED BY KRYS 01/14/17 18:15 02/13/17 18:14 01/16/17 05:05 Dextrose (Dextrose 50%) STAT PRN IV Hypoglycemia 01/11/17 15:30 02/10/17 15:29 Docusate Sodium (Colace) 100 mg TWICE A DAY ORAL 01/11/17 18:00 02/10/17 17:59 01/16/17 09:13 Hydromorphone HCl (Dilaudid) 1 mg Q3H PRN IVP Severe Pain (Pain Scale 7-10) 01/12/17 01:30 01/19/17 01:29 01/15/17 11:57 Insulin Aspart (NovoLOG) AC+HS SUBQ 01/12/17 11:30 02/11/17 11:29 01/15/17 20:25 Mupirocin (Bactroban Oint) 1 applic BID TOPIC 01/12/17 21:00 01/17/17 20:59 01/16/17 09:13 Ondansetron HCl (Zofran) 4 mg Q6H PRN IVP Nausea & Vomiting 01/11/17 14:00 02/10/17 13:59 01/15/17 12:34 Pantoprazole (Protonix) 40 mg DAILY ORAL 01/15/17 09:00 02/14/17 08:59 01/16/17 09:13 Tamsulosin HCl (Flomax) 0.4 mg BEDTIME ORAL 01/12/17 21:00 02/11/17 20:59 01/15/17 20:51 Temazepam (Restoril) 7.5 mg HSPRN PRN ORAL Insomnia 01/11/17 20:00 01/18/17 19:59 01/14/17 21:20 Romain Hanley MD Jan 16, 2017 10:19
[2017-01-16] MEDS ORDERED: NORCO 5-325 TA1 EACH ORAL (10:22)
[2017-01-16] MEDS ORDERED: BACTROBAN 2% OI15 GM TOPIC (10:22)
[2017-01-16] MEDS ORDERED: FLOMAX0.4 MG ORAL (10:22)
--- NOTE | 2017-01-17 09:01 | Discharge Summary ---
Discharge Summary Hospital Course Date of Admission Jan 11, 2017 at 05:42 Date of Discharge Jan 16, 2017 at 12:37 Admitting Diagnosis left renal mass Reason for Hospitalization: elective surgery MIRACLE Torres is a 61 year old male who was admitted on January 11, 2017 at 05 :42 for large left renal mass CT urogram confirmed presence of large mobile left renal mass without distant metastasis treatment options were explained to the patient patient choose to have elective surgery patient was admitted for elective surgery Consultations dr Hanley- Procedures s/p 01/11 - Laparoscopic radical left nephrectomy by dr Dubose Hospital Course s/p surgery initially IVF clear liquids developed postoperative ileus kept on CL diet until flatus diet slowly advanced a/emetic prn able to tolerate diet anemic with lowest HH 7.7/26.6 s/p 2 u PRBC transfusion HH after transfusion HH respectively - 10.5/33.5 BS management with SS of insulin, stable pain controlled tolerated diet ambulated voided freely creat down to 1.3 stable for dc fup with surgeon as outpatient awaiting for pathology results of mass DISCHARGE DIAGNOSIS large left renal mass s/p 01/11 - Laparoscopic radical left nephrectomy postoperative ileus anemia s/p blood transfusion DM Discharge Medications New Medications: Hydrocodone Bit/Acetaminophen 5-325* ([place] 5-325*) 1 Each Tablet 1 TAB ORAL Q4H PRN for 5 Days, TAB Mupirocin (Mupirocin) 22 Gm Oint...g. 1 APPLIC TOPIC BID for 10 Days, GM Tamsulosin HCl (Flomax) 0.4 Mg Cap.er.24h 0.4 MG ORAL BEDTIME for 30 Days, CAP Continued Medications: Dapagliflozin Propanediol (Farxiga) 5 Mg Tablet 5 MG PO DAILY, TAB Discharge Condition Upon Discharge: stable Discharge Disposition Patient was discharged to Home with Home Health(06) Discharge Diagnoses: Discharge Instructions Discharge Instructions Special Instructions I have been assigned to complete a D/C Summary on this account. I was not involved in the patient management Sherron Ruffin NP ([place]) Jan 17, 2017 09:01
== END 2017-01-16 12:37 | disposition home health service (06) | DRG 660 ==
LOC: SDSOVERFLO 05:42 → EDSTATUS 07:30 → 3E 11:49
PROC: 0GT24ZZ Resection of Left Adrenal Gland, Percutaneous Endoscopic Approach (ICD-10-PCS; principal; 2017-01-11 07:30)
PROC: 30233N1 Transfusion of Nonautologous Red Blood Cells into Peripheral Vein, Percutaneous Approach (ICD-10-PCS; principal; 2017-01-11 07:30)
PROC: 0TT14ZZ Resection of Left Kidney, Percutaneous Endoscopic Approach (ICD-10-PCS; principal; 2017-01-11 07:30)
DX: N28.89 Other specified disorders of kidney and ureter (principal); K56.7 Ileus, unspecified; E11.9 Type 2 diabetes mellitus without complications; D64.9 Anemia, unspecified; Z22.322 Carrier or suspected carrier of Methicillin resistant Staphylococcus aureus
CPT/HCPCS: 36415; 76775; 80048; 82962; 85007; 85025; 86850; 86900; 86901; 86920; 87081; 94003; 94150; J1815; J2180; J2250; J2405; J2765